=== PATIENT | female | born 1955 | race Caucasian/White ===

== ENCOUNTER → 2020-08-12 12:45 | Outpatient (BNVA) | payer OTHER, SELFPAY | PROVIDERS: PCP Internal Medicine; Visit Provider Internal Medicine Cardiovascular Disease | DX: I44.7 Left bundle-branch block, unspecified (principal); I10 Essential (primary) hypertension | CPT/HCPCS: 93005 ==

== ENCOUNTER → 2021-08-18 08:41 | Outpatient (BNVA) | payer OTHER, SELFPAY | PROVIDERS: PCP Internal Medicine; Referring Provider Internal Medicine; Visit Provider Internal Medicine Cardiovascular Disease | DX: I44.7 Left bundle-branch block, unspecified (principal); I10 Essential (primary) hypertension | CPT/HCPCS: 93005 ==

== ENCOUNTER → 2021-11-06 07:22 | Outpatient (REF) | payer OTHER, SELFPAY ==
--- NOTE | 2021-11-06 07:25 | CA_ITS ---
Transthoracic Echocardiogram Patient (Last, First, Middle): Gretta Toledo, Gender: Female Date of : 1955 Age: 66 Procedure Date: 11/06/2021 Procedure Type: Transthoracic Echocardiogram Location: OP Height: 167.64 cm Weight: 107.5 kg BSA: 2.15 m2 Heart Rate: 77 bpm BP: 120 / 70 mmHg Body Technician/Painter: SB Referring MD: Lamont Sandy MD Symptoms: I44.7 - Left bundle-branch block, unspecified Study Quality: Fair/BSA/Contrast ECG Rhythm: Sinus Conclusions: - Normal left ventricular size and systolic function. There is moderately increased left ventricular wall thickness. The visually estimated ejection fraction is between 65-70%. - Diastolic function is indeterminate on the basis of available data. - Normal right ventricular cavity size and systolic function. - There is mild dilatation of the ascending aorta measuring 3.20 cm. Findings Procedure Information Contrast agent, definity, is being given per protocol without apparent complications. Left Ventricle Normal left ventricular size and systolic function. There is moderately increased left ventricular wall thickness. The visually estimated ejection fraction is between 65-70%. There is no evidence of regional wall motion abnormalities. There is paradoxical septal motion consistent with a left bundle branch block. Diastolic function is indeterminate on the basis of available data. Right Ventricle Normal right ventricular cavity size and systolic function. Atria The left atrium is normal in size. Aortic Valve Normal aortic valve structure and function. There is mild calcification of the aortic valve. There is no aortic valve stenosis. There is no aortic valve regurgitation. Tricuspid Valve Normal tricuspid valve structure and function. There is trace tricuspid valve regurgitation. Tricuspid regurgitation envelope is inadequate for calculation of right ventricular systolic pressure. Normal right atrial pressure. Great Vessels There is mild dilatation of the ascending aorta measuring 3.20 cm. The visualized portions of the pulmonary artery and branches are normal. Venous The inferior vena cava is normal in size and collapses greater than 50% with inspiration. Pericardium/Pleural There is no evidence of pericardial effusion. Prior Study Comparison No prior study available for comparison. Measurements 2D Linear Measurements IVSd: 1.21 0.6-0.9/0.6-1.0 cm LVIDd: 4.36 3.9-5.3/4.2-5.9 cm LVIDd Index: 2.03 2.4-3.2/2.2-3.1 cm/m2 LVIDs: 2.64 2.0-3.6 cm LVPWd: 1.11 0.7-1.1 cm LA Diam: 4.10 2.7-3.8/3.0-4.0 cm LAIDs Index: 1.91 1.5-2.3 cm/m2 LV Mass: 223.80 67-162/88-224 g LV Mass Index: 104.09 43-95/49-115 g/m2 LVOT Diam: 2.10 3.0+(-)1.3 cm 2D Systolic Function EF 4C: 67.10 >55% EF 2C: 75.90 >55% EF BiP: 71.60 >55% Mitral Valve MV Pk E: 1.06 MV PK A: 1.08 MV Decel Time: 163.00 E/A: 1.00 E'Lateral: 7.07 E'Medial: 4.79 E/E' Med: 22.10 E/E' Lat: 15.00 PHT: 48.00 MVA PHT: 4.58 Decel Bradley: 6.53 Aortic Valve AoV Pk Charly: 1.58 AoV Mn Charly: 1.10 AoV VTI: 0.31 AoV Pk Grad: 10.00 Aov Mn Grad: 6.00 MAYA Cont.VTI: 3.47 LVOT LVOT Pk Charly: 1.51 LVOT Mn Charly: 1.10 LVOT VTI: 0.31 LVOT Pk Grad: 9.00 LVOT Mn Grad: 5.00 LVOT Diam: 2.10 LVOT Area: 3.46 Diastolic Function MV Pk E: 1.06 MV Pk A: 1.08 E/A: 1.00 E'Medial: 4.79 E/E' Med: 22.10 E' Laterial: 7.07 E/E' Lat: 15.00 Right Ventricle TAPSE (mm): 19.40 TVS' Charly: 13.20 Tricuspid Valve RA Press: 3.00 Great Vessels Aorta Sinus of Valsalva: 2.70 2.0-3.[address] [place]: 2.35 1.7-3.4 cm Ao Asc: 3.20 2.1-3.4 cm Pulmonary Veins Pulm Vein S/D 1.40 Pulmonary Valve PV Pk Charly: 1.16 Peak PV Grad: 5.00 Updated in Other Vendor System with Status of Final Lamont Sandy MD electronically signed on 11/08/2021 7:13:13 PM with status of Final
== END ==
LOC: HO.CARD 07:22
PROVIDERS: Visit Provider Internal Medicine Cardiovascular Disease
DX: I44.7 Left bundle-branch block, unspecified (principal)
CPT/HCPCS: 93306; Q9957

== ENCOUNTER → 2022-08-20 13:27 | Outpatient (BNVA) | payer OTHER, SELFPAY | PROVIDERS: PCP Family Medicine; Referring Provider Internal Medicine; Visit Provider Internal Medicine Cardiovascular Disease | DX: I10 Essential (primary) hypertension (principal) | CPT/HCPCS: 93005 ==

== ENCOUNTER 2023-10-27 09:06 | Outpatient (AMB) | payer OTHER, SELFPAY ==
--- NOTE | 2023-10-27 09:12 | A.OFFVIS_ITS ---
Vital Signs 10/27/23 09:13 Height 5 ft 6 in Weight 235 lb 7.259 oz BMI 38.0 BP 126/60 Blood Pressure Location Lt brachial Position Sitting Pulse 90 Intake Visit Reasons: 1 yr f/up Intake Note: pt states that she is doing fine. Repeat Photocomposing Machine Operator Required: No Accompanied by: Self / Same As Patient Allergies No Known Allergies [No Known Allergies*] Allergy (Verified 08/20/22 13:40) Medication List - Last Reconciled 10/27/23 by Lamont Sandy MD atorvastatin 40 mg PO BEDTIME cholecalciferol (vitamin D3) 25 mcg PO DAILY glimepiride 6 mg PO DAILY insulin glargine (Lantus Solostar U-100 Insulin) 53 units subcut QAM losartan-hydrochlorothiazide 100-12.5 mg 1 tab PO DAILY metformin 1,000 mg PO BID vitamin B complex (B Complex-Vitamin B12 tablet) 1 tab PO DAILY HPI Comments Details: 68-year-old female here for follow-up. She was seen when she presented with burning chest discomfort and was ruled out inside the hospital. She subsequently underwent Lexiscan which was normal. She was started on omeprazole with improvement in her burning chest discomfort. She has left bundle-branch block. Echocardiography has shown normal biventricular function. She has no symptoms/signs of heart failure. No chest discomfort or progressive shortness of breath. Physically she is not very active but during wintertime she is quite sedentary and is saying that as the weather is changing she will start walking more. Blood pressure control is currently reasonable. 10/27/23: She is here for follow-up. EKGs showing left bundle-branch block with QRS duration of 142 milliseconds. She has no symptoms. No CP, SOB/CHF symptoms in particular. [facility] Surgical History History of 2 sections Family History Father Diabetes Mother S/P ablation of atrial fibrillation HTN (hypertension) Arthritis Social History Alcohol intake: current Alcohol intake frequency: a few times a week Alcohol type: wine Patient Tobacco Use Status: Never used Tobacco Review of Systems Const Denies chills, Denies fatigue, Denies fever(s), Denies frequent falls, Denies weakness, Denies weight gain and Denies weight loss ENT Denies dizziness Card Denies chest pain, Denies leg edema, Denies lightheadedness, Denies palpitations, Denies dyspnea and Denies dyspnea on exertion Resp Denies cough, Denies dyspnea and Denies dyspnea on exertion GI Denies hematochezia Musc Denies abnormal gait, Denies muscle weakness, Denies numbness, Denies radiating pain into limb and Denies tingling Neuro Denies abnormal gait, Denies dizziness, Denies frequent falls, Denies numbness, Denies tingling and Denies weakness Endo Denies fatigue and Denies palpitations Physical Exam Vital Signs: Last Vital Signs Pulse 90 10/27/23 09:13 BP 126/60 10/27/23 09:13 BMI result Body Mass Index 38.0 GENERAL APPEARANCE: in no acute distress, pleasant. NECK: no carotid bruit, no jugular venous distention. SKIN: no suspicious lesions, warm and dry. HEART: no murmurs, regular rate and rhythm. Tachycardic. LUNGS: clear to auscultation bilaterally. ABDOMEN: soft, nontender. EXTREMITIES: no edema. PERIPHERAL PULSES: equal. NEUROLOGIC: No gross deficits, AAO X 3 Office Procedures EKG Details: NSR 90/min, normal axis, LBBB, QRS 142 msec, QTc 477 msec. [id number], Complete Assessment & Plan Assessment & Plan (1) Essential hypertension: Comment: Good control. Code(s): I10 - Essential (primary) hypertension Category: Medical (2) LBBB (left bundle branch block): Comment: Stable. She had normal stress testing in the past. No new symptoms. Code(s): I44.7 - Left bundle-branch block, unspecified Category: Medical Plan 68-year-old female with HTN and LBBB. She had echo in 2022 which showed normal LVEF. Cinically stable. Discussed with her about symptoms of CHF and to call us if she develops any symptoms. F/u in 1 year. Would repeat echo before next visit in 1 year. Orders: Orders CA echo transthoracic complete 1 Year I44.7 - Left bundle-branch block, unspecified Coding Level of Care Code Est Pt Level 4 (41800) Diagnoses Essential hypertension I10 LBBB (left bundle branch block) I44.7 CPT Codes EKG - CPT: 00056-[id number], Complete ([id number])
[2023-10-27 09:13] VITALS: BP 126/60; PULSE 90; BMI 38.0
== END 2023-10-27 09:35 | disposition home or self-care (01) ==
PROVIDERS: PCP Family Medicine; Visit Provider Internal Medicine Cardiovascular Disease
DX: I10 Essential (primary) hypertension (principal); I44.7 Left bundle-branch block, unspecified
CPT/HCPCS: 93010; 99214

== ENCOUNTER → 2023-10-27 09:06 | Outpatient (BNVA) | payer OTHER, SELFPAY | PROVIDERS: PCP Family Medicine; Visit Provider Internal Medicine Cardiovascular Disease | DX: I44.7 Left bundle-branch block, unspecified (principal); I10 Essential (primary) hypertension | CPT/HCPCS: 93005 ==

== ENCOUNTER 2023-12-15 15:38 | Outpatient (AMB) | payer OTHER, SELFPAY ==
[2023-12-15 15:42] VITALS: BP 130/60; PULSE 91; BMI 37.8
--- NOTE | 2023-12-15 15:42 | A.OFFVIS_ITS ---
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 She was seen when she presented with burning chest discomfort and was ruled out inside the hospital. She subsequently underwent Lexiscan which was normal. She was started on omeprazole with improvement in her burning chest discomfort. She has left bundle-branch block. Echocardiography has shown normal biventricular function. She has no symptoms/signs of heart failure. No chest discomfort or progressive shortness of breath. Physically she is not very active but during wintertime she is quite sedentary and is saying that as the weather is changing she will start walking more. Blood pressure control is currently reasonable. 10/27/23: She is here for follow-up. EKGs showing left bundle-branch block with QRS duration of 142 milliseconds. She has no symptoms. No CP, SOB/CHF symptoms in particular. 12/15/23: She is here for f/u. She had presyncope x 2 and went to [facility]. She had bradycardia based on her apple watch at time. She was out in the sun in her pool both times and felt dizzy and lightheaded when she went inside the house. Her work up at [facility] was normal. She has chronic LBBB. [facility] Surgical History History of 2 sections Family History Father Diabetes Mother S/P ablation of atrial fibrillation HTN (hypertension) Arthritis Social History Alcohol intake: current Alcohol intake frequency: a few times a week Alcohol type: wine Patient Tobacco Use Status: Never used Tobacco Review of Systems Const Denies chills, Denies fatigue, Denies fever(s), Denies frequent falls, Denies weakness, Denies weight gain and Denies weight loss ENT Denies dizziness Card Denies chest pain, Denies leg edema, Denies lightheadedness, Denies palpitations, Denies dyspnea and Denies dyspnea on exertion Resp Denies cough, Denies dyspnea and Denies dyspnea on exertion GI Denies hematochezia Musc Denies abnormal gait, Denies muscle weakness, Denies numbness, Denies radiating pain into limb and Denies tingling Neuro Denies abnormal gait, Denies dizziness, Denies frequent falls, Denies numbness, Denies tingling and Denies weakness Endo Denies fatigue and Denies palpitations Physical Exam Vital Signs: Last Vital Signs Pulse 91 12/15/23 15:42 BP 130/60 12/15/23 15:42 BMI result Body Mass Index 37.8 GENERAL APPEARANCE: in no acute distress, pleasant. NECK: no carotid bruit, no jugular venous distention. SKIN: no suspicious lesions, warm and dry. HEART: no murmurs, regular rate and rhythm. Tachycardic. LUNGS: clear to auscultation bilaterally. ABDOMEN: soft, nontender. EXTREMITIES: no edema. PERIPHERAL PULSES: equal. NEUROLOGIC: No gross deficits, AAO X 3 Office Procedures EKG Details: Sinus rhythm 95 beats per minute, left axis deviation, left bundle-branch block, QTC 495 milliseconds. [id number], Complete Assessment & Plan Assessment & Plan (1) Essential hypertension: Comment: Good control. Code(s): I10 - Essential (primary) hypertension Category: Medical (2) Bradycardia: Code(s): R00.1 - Bradycardia, unspecified Category: Medical (3) LBBB (left bundle branch block): Comment: Stable. She had normal stress testing in the past. No new symptoms. Code(s): I44.7 - Left bundle-branch block, unspecified Category: Medical (4) Pre-syncope: Code(s): R55 - Syncope and collapse Category: Medical Plan Pleasant 68-year-old female with chronic LBBB, HTN and presyncope. She noted her HR to be low in 40s by Apple watch but clinical story is more suggestive of vasovagal event. Advised her to avoid heat and keep herself well hydrated. We will arrange ROCAEL and repeat echo. f/u in few months. Thank you for allowing me to participate in the care of your patient. Please feel free to contact me if you have any questions. Coding Level of Care Code Est Pt Level 4 (68208) Diagnoses Essential hypertension I10 Bradycardia R00.1 LBBB (left bundle branch block) I44.7 Pre-syncope R55 CPT Codes EKG - CPT: 65788-[id number], Complete ([id number])
== END 2023-12-15 16:15 | disposition home or self-care (01) ==
PROVIDERS: PCP Family Medicine; Visit Provider Internal Medicine Cardiovascular Disease
DX: I10 Essential (primary) hypertension (principal); R00.1 Bradycardia, unspecified; I44.7 Left bundle-branch block, unspecified; R55 Syncope and collapse
CPT/HCPCS: 93010; 99214

== ENCOUNTER → 2023-12-15 15:38 | Outpatient (BNVA) | payer OTHER, SELFPAY | PROVIDERS: PCP Family Medicine; Visit Provider Internal Medicine Cardiovascular Disease | DX: I10 Essential (primary) hypertension (principal); R00.1 Bradycardia, unspecified; I44.7 Left bundle-branch block, unspecified; R55 Syncope and collapse | CPT/HCPCS: 93005 ==

== ENCOUNTER → 2023-12-20 13:45 | Outpatient (REF) | payer OTHER, SELFPAY ==
--- NOTE | 2023-12-20 13:48 | HM_ITS ---
* Total procedure length 30 days. Wear time 24 days. * Underlying rhythm is sinus with intraventricular conduction defect. Average ventricular rate 78/Min. * Rare supraventricular ectopy with burden < 1%. Brief runs noted. * Rare ventricular ectopy with burden < 1%. Suspected wide complex run at 00:32, 11 beats, 111/Min, monomorphic appearing. Difficult to assess due to very low voltage. * No symptoms mentioned. MTDD
== END ==
LOC: HO.CARD 13:45
PROVIDERS: Visit Provider Internal Medicine Cardiovascular Disease
DX: R00.1 Bradycardia, unspecified (principal)
CPT/HCPCS: 93270

== ENCOUNTER → 2023-12-20 13:48 | Outpatient (BNV) | payer OTHER, SELFPAY | PROVIDERS: Visit Provider Internal Medicine | DX: I45.9 Conduction disorder, unspecified (principal) | CPT/HCPCS: 93272 ==

== ENCOUNTER → 2023-12-30 12:45 | Outpatient (REF) | payer OTHER, SELFPAY ==
--- NOTE | 2023-12-30 12:48 | CA_ITS ---
Transthoracic Echocardiogram Patient (Last, First, Middle): Gretta Toledo, Gender: Female Date of : 1955 Age: 68 Procedure Date: 12/30/2023 Procedure Type: Transthoracic Echocardiogram Location: OP Height: 167.64 cm Weight: 106.14 kg BSA: 2.14 m2 Heart Rate: 74 bpm BP: 128 / 60 mmHg Sharepoint Application Architect: SB Referring MD: Lamont Sandy MD Shipfitter Helper: Patrick Alfred MD Symptoms: I44.7 - Left bundle-branch block, unspecified Study Quality: Adequate w contrast ECG Rhythm: Sinus Conclusions: - 1. Normal LV ejection fraction at 65-70% with impaired relaxation filling pattern with mild obstructive physiology 2. Normal cardiac valvular Doppler with mild mitral calcification 3. Normal RV systolic pressure 4. No pericardial effusion Findings Procedure Information Contrast agent, definity, is being given per protocol without apparent complications. Left Ventricle Normal left ventricular size, thickness, and systolic function. The visually estimated ejection fraction is between 65-70%. There is paradoxical septal motion consistent with a left bundle branch block. Spectral Doppler is indicative of an impaired relaxation filling pattern. E/E prime ratio is between 8 and 15 consistent with indeterminate filling pressures. there is mildly increased gradient across the LVOT at rest at 7 mm Hg which increases to 14 mm Hg with Valsalva suggestive of maybe mild obstructive physiology which is dynamic Right Ventricle Normal right ventricular cavity size and systolic function. Atria The left atrium is likely dilated. Interatrial shunt cannot be excluded. The right atrium is normal in size. Aortic Valve Normal aortic valve structure and function. There is no aortic valve stenosis. There is no aortic valve regurgitation. Mitral Valve Likely normal mitral valve structure and function. There is mild mitral annular calcification. There is trace mitral valve regurgitation. There is no mitral valve stenosis. Pulmonic Valve The pulmonic valve was not well visualized. Tricuspid Valve Likely normal tricuspid valve structure and function. There is trace tricuspid valve regurgitation. The right ventricular systolic pressure is normal. The right ventricular systolic pressure is 27 mmHg. Normal right atrial pressure. There is no evidence of pulmonary hypertension. Great Vessels All visible segments of the aorta are normal in size. The pulmonary artery was not well visualized. There is no dilatation of the ascending aorta measuring 3.10 cm. Venous The inferior vena cava is normal in size and collapses greater than 50% with inspiration. Pericardium/Pleural There is no evidence of pericardial effusion. Measurements 2D Linear Measurements IVSd: 1.15 0.6-0.9/0.6-1.0 cm LVIDd: 4.15 3.9-5.3/4.2-5.9 cm LVIDd Index: 1.94 2.4-3.2/2.2-3.1 cm/m2 LVIDs: 2.95 2.0-3.6 cm LVPWd: 1.10 0.7-1.1 cm LA Diam: 4.00 2.7-3.8/3.0-4.0 cm LAIDs Index: 1.87 1.5-2.3 cm/m2 LV Mass: 197.15 67-162/88-224 g LV Mass Index: 92.13 43-95/49-115 g/m2 LVOT Diam: 2.10 3.0+(-)1.3 cm 2D Systolic Function EF 4C: 78.70 >55% EF 2C: 67.50 >55% EF BiP: 74.20 >55% Mitral Valve MV Pk E: 0.85 MV PK A: 1.14 MV Decel Time: 184.00 E/A: 0.70 E'Lateral: 6.31 E'Medial: 4.79 E/E' Med: 17.70 E/E' Lat: 13.40 PHT: 54.00 MVA PHT: 4.07 Decel [place]: 4.60 Aortic Valve AoV Pk Charly: 1.86 AoV Mn Charly: 1.36 AoV VTI: 0.37 AoV Pk Grad: 14.00 Aov Mn Grad: 9.00 MAYA Cont.VTI: 3.23 LVOT LVOT Pk Charly: 1.76 LVOT Mn Charly: 1.23 LVOT VTI: 0.34 LVOT Pk Grad: 12.00 LVOT Mn Grad: 7.00 LVOT Diam: 2.10 LVOT Area: 3.46 Diastolic Function MV Pk E: 0.85 MV Pk A: 1.14 E/A: 0.70 E'Medial: 4.79 E/E' Med: 17.70 E' Laterial: 6.31 E/E' Lat: 13.40 Right Ventricle TAPSE (mm): 21.90 TVS' Charly: 15.10 Tricuspid Valve TR Pk Charly: 2.46 TR Pk Grad: 24.00 RA Press: 3.00 RVSP: 27.00 Great Vessels Aorta Sinus of Valsalva: 2.90 2.0-3.5 cm Ao Asc: 3.10 2.1-3.4 cm Pulmonary Veins Pulm Vein S/D 2.10 Pulmonary Valve PV Pk Charly: 1.28 Peak PV Grad: 7.00 Updated in Other Vendor System with Status of Final Patrick Alfred MD electronically signed on 12/31/2023 12:00:17 PM with status of Final
== END ==
LOC: HO.CARD 12:45
PROVIDERS: PCP Family Medicine; Visit Provider Internal Medicine Cardiovascular Disease
DX: I44.7 Left bundle-branch block, unspecified (principal)
CPT/HCPCS: 93306; Q9957

== ENCOUNTER → 2023-12-30 12:48 | Outpatient (BNV) | payer OTHER, SELFPAY | PROVIDERS: PCP Family Medicine; Visit Provider Internal Medicine Cardiovascular Disease | DX: I44.7 Left bundle-branch block, unspecified (principal); I42.1 Obstructive hypertrophic cardiomyopathy; I34.81 Nonrheumatic mitral (valve) annulus calcification | CPT/HCPCS: 93306 ==

== ENCOUNTER 2024-02-07 13:15 | Outpatient (AMB) | payer OTHER, SELFPAY ==
[2024-02-07 13:23] VITALS: BP 140/72; PULSE 91; BMI 37.9
--- NOTE | 2024-02-07 13:23 | MHC.OFFVIS ---
Vital Signs 02/07/24 13:23 Height 5 ft 6 in Weight 234 lb 9.149 oz BMI 37.9 BP 140/72 H Blood Pressure Location Rt brachial Position Sitting Pulse 91 Pulse Source Pulse Oximeter Intake Visit Reasons: f/up Manager Infusion Required: No Accompanied by: Self / Same As Patient Allergies No Known Allergies [No Known Allergies*] Allergy (Verified 08/20/22 13:40) Medication List - Last Reconciled 02/07/24 by Lamont Sandy MD atorvastatin 40 mg PO BEDTIME cholecalciferol (vitamin D3) 25 mcg PO DAILY cholecalciferol (vitamin D3) 50 mcg PO DAILY glimepiride 6 mg PO DAILY insulin glargine (Lantus Solostar U-100 Insulin) 53 units subcut QAM losartan 100 mg PO DAILY metformin 1,000 mg PO BID HPI Comments Details: 69-year-old female here for follow-up. She was seen when she presented with burning chest discomfort and was ruled out inside the hospital. She subsequently underwent Lexiscan which was normal. She was started on omeprazole with improvement in her burning chest discomfort. She has left bundle-branch block. Echocardiography has shown normal biventricular function. She has no symptoms/signs of heart failure. No chest discomfort or progressive shortness of breath. Physically she is not very active but during wintertime she is quite sedentary and is saying that as the weather is changing she will start walking more. Blood pressure control is currently reasonable. 10/27/23: She is here for follow-up. EKGs showing left bundle-branch block with QRS duration of 142 milliseconds. She has no symptoms. No CP, SOB/CHF symptoms in particular. 12/15/23: She is here for f/u. She had presyncope x 2 and went to [facility]. She had bradycardia based on her apple watch at time. She was out in the sun in her pool both times and felt dizzy and lightheaded when she went inside the house. Her work up at [facility] was normal. She has chronic LBBB. 02/07/2024: She is here for follow-up. No further episodes of syncope. She had cardiac event monitor which did not show any significant arrhythmia. She had short runs of wide complex rhythm which I think is supraventricular rhythm with aberrancy. She has known left bundle-branch block at baseline. No chest discomfort. Blood pressure is elevated. PFSH Surgical History History of 2 sections Family History Father Diabetes Mother S/P ablation of atrial fibrillation HTN (hypertension) Arthritis Social History Alcohol intake: current Alcohol intake frequency: a few times a week Alcohol type: wine Patient Tobacco Use Status: Never used Tobacco Review of Systems Const Denies chills, Denies fatigue, Denies fever(s), Denies frequent falls, Denies weakness, Denies weight gain and Denies weight loss ENT Denies dizziness Card Denies chest pain, Denies leg edema, Denies lightheadedness, Denies palpitations, Denies dyspnea and Denies dyspnea on exertion Resp Denies cough, Denies dyspnea and Denies dyspnea on exertion GI Denies hematochezia Musc Denies abnormal gait, Denies muscle weakness, Denies numbness, Denies radiating pain into limb and Denies tingling Neuro Denies abnormal gait, Denies dizziness, Denies frequent falls, Denies numbness, Denies tingling and Denies weakness Endo Denies fatigue and Denies palpitations Physical Exam Vital Signs: Last Vital Signs Pulse 91 02/07/24 13:23 BP 140/72 H 02/07/24 13:23 BMI result Body Mass Index 37.9 GENERAL APPEARANCE: in no acute distress, pleasant. NECK: no carotid bruit, no jugular venous distention. SKIN: no suspicious lesions, warm and dry. HEART: no murmurs, regular rate and rhythm. Tachycardic. LUNGS: clear to auscultation bilaterally. ABDOMEN: soft, nontender. EXTREMITIES: no edema. PERIPHERAL PULSES: equal. NEUROLOGIC: No gross deficits, AAO X 3 Assessment & Plan Assessment & Plan (1) Pre-syncope: Code(s): R55 - Syncope and collapse Category: Medical (2) Essential hypertension: Comment: Good control. Code(s): I10 - Essential (primary) hypertension Category: Medical (3) LBBB (left bundle branch block): Comment: Stable. She had normal stress testing in the past. No new symptoms. Code(s): I44.7 - Left bundle-branch block, unspecified Category: Medical Plan Pleasant 69 year female who is here for follow-up. She has known history of hypertension, left bundle-branch block and previous presyncope. Presyncopal episodes were due to vasovagal syncope. She has been hydrating herself and doing well. I have advised her to avoid heat as much as possible. Blood pressure is mildly elevated. No Jignesh arrhythmia noticed on her cardiac event monitor. She did have what appears like supraventricular arrhythmia with aberrancy. I am starting her on low-dose carvedilol which will help her with blood pressure and potentially with arrhythmia. Clinically stable. She will see us back in few months. Thank you for allowing me to participate in the care of your patient. Please feel free to contact me if you have any questions. Medications: New carvedilol must administer with a meal/food 3.125 mg PO BID 100 tabs 3RF I10 - Essential (primary) hypertension Coding Level of Care Code Est Pt Level 4 (49491) Diagnoses Pre-syncope R55 Essential hypertension I10 LBBB (left bundle branch block) I44.7
== END 2024-02-07 14:04 | disposition home or self-care (01) ==
PROVIDERS: PCP Family Medicine; Visit Provider Internal Medicine Cardiovascular Disease
DX: R55 Syncope and collapse (principal); I10 Essential (primary) hypertension; I44.7 Left bundle-branch block, unspecified
CPT/HCPCS: 99214

== ENCOUNTER → 2024-02-07 13:15 | Outpatient (BNVA) | payer OTHER, SELFPAY | PROVIDERS: PCP Family Medicine; Visit Provider Internal Medicine Cardiovascular Disease ==

== ENCOUNTER 2024-08-03 08:30 | Outpatient (AMB) | payer OTHER, SELFPAY ==
[2024-08-03 08:45] VITALS: BP 140/62; PULSE 75; BMI 38.3
--- NOTE | 2024-08-03 08:45 | A.OFFVIS_ITS ---
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: No Allergies No Known Allergies [No Known Allergies*] Allergy (Verified 08/03/24 08:49) Medication List - Last Reconciled 08/03/24 by Oralia Barron NP-C atorvastatin 40 mg PO BEDTIME carvedilol 3.125 mg PO BID cholecalciferol (vitamin D3) 25 mcg PO DAILY cholecalciferol (vitamin D3) 50 mcg PO DAILY glimepiride 6 mg PO DAILY insulin glargine (Lantus Solostar U-100 Insulin) 53 units subcut QAM losartan 100 mg PO DAILY metformin 1,000 mg PO BID HPI HPI 6m/up- KM pt: Details: Gretta is a 69-year-old female with past medical history of obesity, hypertension, left bundle branch block, prior reports of chest discomfort with normal nuclear stress test, presyncope which was thought to be vasovagal who presents for follow-up. Today she reports she has been doing well since her last visit in January. She has no chest discomfort at rest or with activity. No concerning shortness of breath, no PND, orthopnea or edema. No lightheadedness, presyncope, syncope. She is going on a cruise in a few weeks. 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 No routine exercise. Compliant with meds. She is going to be starting on weight loss injections. [facility] Medical History (Updated 08/03/24 @ 11:43 by Oralia Barron, LAURA-C) LBBB (left bundle branch block) Surgical History History of 2 sections Family History Father Diabetes Mother S/P ablation of atrial fibrillation HTN (hypertension) Arthritis Social History Alcohol intake: current Alcohol intake frequency: a few times a week Alcohol type: wine Patient Tobacco Use Status: Never used Tobacco Review of Systems Const All systems reviewed & are unremarkable except as noted in HPI and below ENT Denies dizziness Card Denies chest pain, Denies chest pain at rest, Denies chest pain with activity, Denies rapid heart rate, Denies pedal edema, Denies edema, Denies leg edema, Denies lightheadedness, Denies palpitations, Denies dyspnea, Denies dyspnea on exertion and Denies orthopnea Resp Denies cough, Denies dyspnea and Denies dyspnea on exertion GI Denies hematochezia and Denies change in stool character Musc Denies abnormal gait, Denies limited range of motion, Denies muscle cramps, Denies muscle weakness, Denies numbness, Denies radiating pain into limb, Denies stiffness and Denies tingling Neuro Denies abnormal gait, Denies dizziness, Denies numbness and Denies tingling Endo Denies palpitations Physical Exam Vital Signs: Last Vital Signs Pulse 75 08/03/24 08:45 BP 140/62 H 08/03/24 08:45 BMI result Body Mass Index 38.3 Const General: cooperative, healthy appearing, comfortable and no acute distress Orientation/consciousness: patient oriented x3 Neck Neck: Yes normal visual inspection and Yes no JVD Resp Effort & Inspection: normal respiratory effort Auscultation: clear to auscultation bilaterally, no rales, no rhonchi and no wheezes Cardio Rate: regular rate Rhythm: regular rhythm Heart sounds: S1 normal heart sound present, S2 normal heart sound present, no murmurs and no rubs Neuro General: patient oriented x3 Extrem General: Yes normal to inspection and No no pedal edema Psych Appearance: grossly normal Mental Status: mental status grossly normal Speech and movement: Normal speech and movement present Office Procedures EKG Details: Today, read by me, SR with LBBB, rate 75, Qtc 471ms [id number], Complete Assessment & Plan Assessment & Plan (1) LBBB (left bundle branch block): Comment: Stable. She had normal stress testing in the past. No new symptoms. Code(s): I44.7 - Left bundle-branch block, unspecified Category: Medical Plan: Chronic left bundle branch block noted on EKGs. Nuclear stress test from 07/11/2019 was normal. No anginal or heart failure symptoms. last echo done 12/30/2023 shows normal EF. EKG today showing normal sinus rhythm with left bundle branch block, unchanged from prior, rate 75. (2) Essential hypertension: Comment: Good control. Code(s): I10 - Essential (primary) hypertension Category: Medical Plan: History of hypertension. Blood pressure mildly elevated today at 140/62, recheck done by me 140/60. will have her continue on carvedilol and losartan. Discuss benefits of low-salt diet, weight loss and increasing physical activity. Cardiology follow-up 6 months, sooner if needed. (3) Pre-syncope: Code(s): R55 - Syncope and collapse Category: Medical Plan: Two episodes of presyncope in the past. Thought to be vasovagal in nature. No recurrent events since last visit in January. Reviewed good hydration, recognition of symptoms and to sit/lay down if she becomes symptomatic. Emergency care if ever needed. Plan Time spent on chart review, documentation, interview assessment Coding Level of Care Code Est Pt Level 4 (48290) Complex EM visit Add On G2211 Diagnoses LBBB (left bundle branch block) I44.7 Essential hypertension I10 Pre-syncope R55 CPT Codes EKG - CPT: [id number], Complete ([id number]) Time Spent (min) 28
--- OUTSIDE RECORDS SUMMARY | 2024-08-03 09:05 | XMS_ITS ---
Author Organization [facility] Address [address] [place] [address] Care Team Providers Care Security Compliance Specialist Name Role Phone Lakisha Palmer Primary Care Provider Connie Perry Unavailable [phone] Allergies No Known Allergies REASON FOR VISIT At Risk Footcare, Painful Nail(s) aggravated by shoes and causing difficulty standing/walking., Foot pain, Toe Irritation Medications Medication SIG (Take, Route, Frequency, Duration) Notes Start Date End Date Status Extra Depth Orthopedic Shoes (1 Pair) with Customized Heat Molded Multidensity Innersoles (3 Pair) as directed Dx: NIDDM (E11.9), Hammertoe Foot Deformity (M20.41,M20.42), Preulcerative Skin Lesion(s) (L85.1) Active metFORMIN HCl 1000 MG 1 tablet with a me al Orally Once a day Active Lovastatin 40 MG 1 tablet with the evening meal Orally Once a day Active Atorvastatin Calcium 40 MG 1 tablet Orally Once a day Not-Taking Carvedilol 3.125 MG 1 tablet with food Orally Twice a day Active Lantus 100 UNIT/ML as directed Subcutaneous Active Glimepiride 4 MG 1 tablet with breakf ast or the first main meal of the day Orally Once a day Active Losartan Potassium 100 MG 1 tablet Orally Once a day Active Social History Tobacco Use: Social History Observation Description Date Details (start date - stop date) Never Smoker NA - NA Tobacco Use/Smoking Question Answer Notes Are you a: nonsmoker Additional Findings: Tobacco Non-User Current no n-smoker Tobacco use other than smoking: Question Answer Notes Are you an other tobacco user? No Vital Signs Height 5ft6in in 06/30/2024 Weight 234 lbs 06/30/2024 BMI 37.76 kg/m2 06/30/2024 Blood pressure systolic 136 mm Hg 06/30/19 25 Blood pressure diastolic 76 mm Hg 025 Encounters Encounter Location Date Provider Diagnosis [facility] [address] [place] [address] 06/30/2024 Connie Martinse Osteoarthritis of midtarsal joint of left foot M19.072 ; Other hammer toe(s) (acquired), right foot M20.41 ; Tinea unguium B35.1 ; Type 2 diabetes mellitus without complication E11.9 ; Pain in left ankle and joints of left foot M25.572 ; Bursitis of left foot M77.52 ; Other hammer toe(s) (acquired), left foot M20.42 ; Pain in right toe(s) M79.674 and Pain in left toe(s) M79.675 Assessments Encounter Date Diagnosis (ICD Code) Assessment Notes Treatment Notes Treatment Clinical Notes Section Notes 06/30/2024 Osteoarthritis of midtarsal joint of left foot (ICD-10 - M19.072) 06/30/2024 Other hammer toe(s) (acquired), right foot (ICD-10 - M20.41) Patient Educated with: DIABETIC FOOT CARE INSTRUCTIONS. pdf (DIABETIC FOOT CARE INSTRUCTIONS. pdf) 06/30/2024 Tinea unguium (ICD-10 - B35.1) 06/30/2024 Type 2 diabetes mellitus without complication (ICD-10 - E11.9) 06/30/2024 Pain in left ankle and joints of left foot (ICD-10 - M25.572) 06/30/2024 Bursitis of left foot (ICD-10 - M77.52) 06/30/2024 Other hammer toe(s) (acquired), left foot (ICD-10 - M20.42) 06/30/2024 Pain in right toe(s) (ICD-10 - M79.674) 06/30/2024 Pain in left toe(s) (ICD-10 - M79.675) Plan Of Treatment Medication Medication Name Sig Start Date Stop Date Notes Extra Depth Orthopedic Shoes (1 Pair) with Customized Heat Molded Multidensity Innersoles (3 Pair) as directed Dx: NIDDM (E11.9), Hammertoe Foot Deformity (M20.41,M20.42), Preulcerative Skin Lesion(s) (L85.1) Treatment Notes Assessment Notes Other hammer toe(s) (acquired), right fo ot Patient Educated with: DIABETIC FOOT CARE INSTRUCTIONS.pdf (DIABETIC FOOT CARE INSTRUCTIONS.pdf) Next Appt Details Follow Up: 3 Months, Reason: Provider Name:Connie tate, 09/26/2024 09:15:00 AM, [address] [place] [address], [phone], Procedure Notes * Category Sub-Category Detail Notes Debride Nail 6-10 Nail debridement Due to the cl inical pathology outlined in the exam findings, performance of this nail treatment is medically necessary as its management by an unskilled/untrained nonprofessional would put this patients foot and overall health at risk. Therefore, debridement to affected nail(s), as described in exam ( TA, T1, T2, T3, T4, T5, T6, T7, T8, T9, ), was performed exclusively by the physician of record to reduce/remove overall nail length, girth, thickness, subungual debris, and necrotic tissue, by manual and/or electrical means through the use of a nail nipper and/or dremel-type card grinder helper, to a more viable healthy nail plate or bed tissue 6-10 nails in total. Silver nitrate was used for any petechial bleeding as necessary. Definitive antifungal treatment options, both pharmaceutical and surgical, have been reviewed and discussed with the patient. The patient solely prefers the use of intermittent/as needed professional debridement services for their nail condition and understands the need for additional periodic treatments to maintain effectiveness in symptomatic relief - 79334 Keratoma Treatment Parring or Cutting o f Benign Hyperkeratotic Lesion(s) (-57) More than 4 Lesions - Due to the at risk nature of the patients medical condition as documented in the exam findings, performance of this keratoderma treatment is medically necessary as its management by an unskilled/untrained nonprofessional would put this patients foot and overall health at risk. Therefore, the benign hyperkeratotic lesions, ( 6 ) in total, locations as stated and described in the exam ( TA, T5, SUB MTH (s), 1, Plantar Heel(s), B/L), were pared, and/or cut utilizing a sterile 15 blade, tissue nippers, and/or power dremel instrumentation by the physician of [facility] - 15156 Progress Notes * Apolinar TOLEDOaDOB:[birth year] (69 yo F)Acc No.[id number]:06/30/2024 Progress Note Patient:?Gretta TOLEDO Provider:?Connie Martines DPM :1955???Age:69 Y???Sex:Female D ate:06/30/2024 Address:[address] [place], [place] [id number] Pcp:Lakisha Palmer Subjective: * Chief Complaints: * ???At Risk FootcarePainful N ail(s) aggravated by shoes and causing difficulty standing/walking.Foot painToe Irritation * HPI: ???At Risk footcare:?Pt States Last PCP Visit:?Date?03/28/2024 ???Foot Pain:?Nature:?aching, stiffness, swelling, throbbing.?Location:?Top, Midfoot, LEFT.?Duration:?several years.?Course:?unchanged.?Aggravated:?shoes.?Treatments:?rest/alter normal daily activity.?Toe pain:?Location:?B/L feet.?Duration:?several years.?Course:?worse.?Aggravated by:?shoes, any pressure.?Treatments:?Pt states she did not get appt yet for shoes.? * ROS:?General/Constitutional:?Nausea?denies.?Vomiting?denies.?Hunger Thirst?denies.?Loss appetite?denies.?Chills?denies.?Fatigue?denies.?Fever?denies.?Night Sweats?denies.?Unexplained weight loss?denies.?Unexplained weight gain?denies.?HEENTM:?Dentures?denies.?Dizziness?denies.?Glasses/contacts?admits.?Retinopathy?den ies.?Blurred/double vision?denies.?TMJ?denies.?Discharge/drainage?denies.?Implants?denies.?Sore throat?denies.?Dental implants?denies.?Hard of hearing ?denies.?Difficulty chewing/swallowing/speaking?denies.?Nose bleeds?denies.?Sore mouth?denies.?Respiratory:?On O xygen?denies.?Pneumonia/pleurisy?denies.?Bronchitis?denies.?Emphysema?denies.?Co ughing?denies.?Cough blood?denies.?Shortness of breath?denies.?Wheezing?denies.?Cardiovascular:?Pacemaker?denies.?MVP?denies.?WPW?denies.?CHF?denies.?Heart attack?denies.?Septal defect?denies.?Rapid beat?admits.?Chest pain ?denies.?Atrial Fib.?denies.?Murmur/Palpitations?denies.?Gastrointestinal:?Hemorrhoids?denies.?Stomach/Abdominal pain?admits.?Dark blood stool?denies.?Irritable bowel ?admits.?Constipation?denies.?Diarrhea?denies.?Hematology:?Swelling?denies.?Clots?denies.?Varicose Veins?admits.?Bruising?denies.?Bleeding problem?denies.?Genitourinary:?Blood urine?denies.?Frequent/Painfu/urination/bladder control?denies.?Kidney stones?denies.?Infection (UTI)?denies.?Nephropathy?denies.?sex trans dis (STD)?denies.?Prostate?denies.?Musculoskeletal:?Hammertoes?denies.?Bunions?denies.?Back Pain?denies.?Muscle Cramps/ Resting?admits.?Muscle cramps / walking?denies.?Generalized aches and pains?denies.?Weakness?denies.?Integ.:?Bolden?denies.?Scars?denies.?Corns/calluses?admits.?Ingrown nails?denies.?Painful nails?admits.?Open Sores?denies.?Rashes?admits.?Neurologic:?Difficulty sleeping?denies.?Brain disorder?denies.?Numbness?denies.?Balance t rouble?denies.?Confusion?denies.?Fainting/blackouts?denies.?Tingling?denies.?German mors?denies.? * Medical History:? * Surgical History:? s ection 2x 08/23/1984, 11/30/1979 * Hospitalization/Major Diagno stic Procedure:?Denies Past Hospitalization * Family History:?Mother: akanksha garner, diagnosed with Family history of arthritis, Unspecified essential hypertension.?Father: , lung cancer, diagnosed with Diabetic - NIDDM.?Paternal Grand Mother: diagnosed with Diabetic - NIDDM.? * Social History:?Tobacco Use:?Tobacco Use/Smoking?Are you a:?nonsmoker ?Additional Findings: Tobacco Non-User?Current non-smoker ?Tobacco use other than smoking?Are you an other tobacco user??No ???Miscellaneous:?Caffeine: yes, frequency:. ?Children: yes, 3. ?Exercise: no. ?Marital status: . 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 * Medications:?TakingLovastati n 40 MG Tablet 1 tablet with the evening meal Orally Once a day metFORMIN HCl 1000 MG Tablet 1 tablet with a meal Orally Once a day Carvedilol 3.125 MG Tablet 1 tablet with food Orally Twice a day Losartan Potassium 100 MG Tablet 1 tablet Orally Once a day Glimepiride 4 MG Tablet 1 tablet with breakfast or the first main meal of the day Orally Once a day Lantus 100 UNIT/ML Solution as directed Subcutaneous Extra Depth Orthopedic Shoes (1 Pair) with Customized Heat Molded Multidensity Innersoles (3 Pair) as directed Dx: NIDDM (E11.9), Hammertoe Foot Deformity (M20.41,M20.42), Preulcerative Skin Lesion(s) (L85.1) Taking Lovastatin 40 MG Tablet 1 tablet with the evening meal Orally Once a day Taking metFORMIN HCl 1000 MG Tablet 1 tablet with a meal Orally Once a day Taking Carvedilol 3.125 MG Tablet 1 tablet with food Orally Twice a day Taking Losartan Potassium 100 MG Tablet 1 tablet Orally Once a day Taking Glimepiride 4 MG Tablet 1 tablet with breakfast or the first main meal of the day Orally Once a day Taking Lantus 100 UNIT/ML Solution as directed Subcutaneous Taking Extra Depth Orthopedic Shoes (1 Pair) with Customized Heat Molded Multidensity Innersoles (3 Pair) as directed Dx: NIDDM (E11.9), Hammertoe Foot Deformity (M20.41,M20.42), Preulcerative Skin Lesion(s) (L85.1) Not-Taking/PRNAtorvastatin Calcium 40 MG Tablet 1 tablet Orally Once a day Medication List reviewed and reconciled with the patientNot-Taking/PRN Atorvastatin Calcium 40 MG Tablet 1 tablet Orally Once a day Medication List reviewed and reconciled with the patient * Allergies:?N.K.D.A.yes[Aller gizuhair Verified] Objective: * Vitals:?Ht: 5ft6in, Wt:234, BMI:37.76, Shoe size: 10.5, BP:136/76mm Hg, BS: 99, Ht-cm: 167.64 cm, Wt-k.14 kg. * ???Past Orders: ???Lab:HEMOGLOBIN A1C (GLYCO HEMOGLOBIN) (Order Date - 05/24/2024) (Collection Date & Time - 05/24/2024 09:17 AM) ? Value Reference Range ?HEMOGLOBIN A1C % (HH) 7.8 * Examination: ???Ophthalmology Referral: ?DIABETES EYE EXAM?Procedure Performed:?Yes ?Date of Exam Performed?05/24/2024 ?Findings of Diabetic Eye Exam:?no retinopathy?Nails: ?NAILS are:?Elongated, overgrown, dystrophic, lytic, greater than 3mm thick, discolored and friable with crumbly malodorous subungual debris, with pain on palpation, TA, T1, T2, T3, T4, T5, T6, T7, T8, T9.?Dermatologic: ?SKIN FINDINGS:?Skin exam reveals Keratotic lesion(s) located at, Medial plantar, TA, T5, SUB MTH (s), 1, Plantar Heel(s), B/L.?Neurological: ?SENSORY:?Neurological exam reveals intact sensorium, pain sensation normal, vibration sensation intact, pinprick sensation is normal in the lower extremities, 5.07 monofilament test performed at plantar aspects of 5 varied sites per foot shows sensation, normal, B/L, Pt denies, anesthesia, burning, paresthesia, tingling, B/L.?Vascular: ?DP PULSES (B):?3/4, B/L.?PT PULSES (B):?3/4, B/L.?CAPILLARY FILL TIME:?immediate, all digits, B/L.?TROPHIC CONDITION-TEXTURE/ELASTICITY/TURGOR/HAIR GROWTH (B):?decreased, B/L.?TEMPERTURE GRADIENT (C):?normal, warm to cool, proximal to distal, B/L.?PIGMENTATION:?brawny, B/L.?Orthopedic: ?MUSCLE STRENGTH:?5/5 all groups in a symmetrical fashion, B/L.?FOOT MORPHOLOGY:? Prominent, painful 1st Met-Cuneiform joint without inflammation, LEFT.?DIGITAL DEFORMITIES:?Digital contracture, PIPJ, 2-5 B/L, incompl-reducible to push-up test, no over, nor underlapping,?there is?evidence of shoe producing skin irritation.?FOOTWEAR:?worn, non-supportive, shoe gear properties exacerbate patient's foot/toe deformity.?General Examination: ?GENERAL APPEARANCE:?Reveals a pleasant, alert, well nourished, well- developed, well hydrated individual, who demonstrates proper attention to hygiene/body habitus, and is in no acute distress, Pt serves as own historian for office visit today.?ORIENTED:?person, place, and time.?FOOT EXAM:?Lower Extremity Neurological Exam performed:?Yes ?Visual exam of foot performed:?Yes ?Date?06/30/2024 ?Footwear Evaluation?Footwear Evaluation performed:?Yes??? Assessment: * Assessment: 1.?Other hammer toe(s) (acqu ired), right foot - M20.41 (Primary)???Specify :Chronic problem, Worse (4),Rx Management (4)???2.?Osteoarthritis of midtarsal joint of left foot - M19.072???3.?Tinea unguium - B35.1???4.?Type 2 diabetes mellitus without complication - E11.9???5.?Pain in left ankle and joints of left foot - M25.572???6.?Bursitis of left foot - M77.52???7.?Other hammer toe(s) (acquired), left foot - M20.42???Specify :Chronic problem, Worse (4),Rx Management (4)???8.?Pain in right toe(s) - M79.674???9.?Pain in left toe(s) - M79.675??? Plan: * Treatment: * Procedures:?Debride Nail 6-10:?Nail debridement?Due to the clinical pathology outlined in the exam findings, performance of this nail treatment is medically necessary as its management by an unskilled/untrained nonprofessional would put this patients foot and overall health at risk. Therefore, debridement to affected nail(s), as described in exam ( TA, T1, T2, T3, T4, T5, T6, T7, T8, T9, ), was performed exclusively by the physician of record to reduce/remove overall nail length, girth, thickness, subungual debris, and necrotic tissue, by manual and/or electrical means through the use of a nail nipper and/or dremel-type card grinder helper, to a more viable healthy nail plate or bed tissue 6- 10 nails in total. Silver nitrate was used for any petechial bleeding as necessary. Definitive antifungal treatment options, both pharmaceutical and surgical, have been reviewed and discussed with the patient. The patient solely prefers the use of intermittent/as needed professional debridement services for their nail condition and understands the need for additional periodic treatments to maintain effectiveness in symptomatic relief - 21739.?Keratoma Treatment:?Parring or Cutting of Benign Hyperkeratotic Lesion(s)?(-57) More than 4 Lesions - Due to the at risk nature of the patients medical condition as documented in the exam findings, performance of this keratoderma treatment is medically necessary as its management by an unskilled/untrained nonprofessional would put this patients foot and overall health at risk. Therefore, the benign hyperkeratotic lesions, ( 6 ) in total, locations as stated and described in the exam (?TA,?T5,?SUB MTH (s),?1,?Plantar Heel(s),?B/L), were pared, and/or cut utilizing a sterile 15 blade, tissue nippers, and/or power dremel instrumentation by the physician of record - 31063.? * Procedure Codes:?97947 TRIM SKIN LESIONS, OVER 4, Modifiers: XS 97477 DEBRIDE NAIL, 6 OR MORE, Modifiers: XS * Preventive Medicine:? ??Counseling:?Discussion:?-14: Office or other outpatient visit for the evaluation and management of an established patient, which required a medically appropriate history and/or examination and MODERATE level of DECISION MAKING for: 1 OR MORE CHRONIC PROBLEM(S) THATS WORSENING, 2 STABLE CHRONIC PROBLEMS, A NEWLY DIAGNOSED PROBLEM WITH UNCERTAIN PROGNOSIS, AN ACUTE COMPLICATED INJURY WITH MULTIPLE TREATMENT OPTIONS, OR AN ACUTE PROBLEM WITH ACCOMPANYING SYSTEMIC SYMPTOMS, THAT POSE(S) A MODERATE RISK OF MORBIDITY. THIS CONDITION MAY ALSO INCLUDE RX DRUG MANAGEMENT, OR A DECISON FOR MINOR SURGERY. The visit on the day of the encounter encompassed interpreting the data and educating the patient as to the nature of their condition, treatment options available according to their individual PMH, meds, allergies, and overall health/living conditions, as well as any potential risks or complications that may occur from a failure to adhere to, and participate in, the recommended course of therapy. The discussion included a complete verbal, and/or written explanation of the examination results, any x-rays taken, the proposed diagnosis, and outline of the treatment plan. A schedule for future care needs was also explained. The patient verbalized an understanding of the instructions at this time and agreed to be an active participant in their treatment. If the patient should think of any questions or concerns after the visit, I have encouraged the patient to call the office.?Arthritis:?The patient was counseled on the various etiologies for their Arthritis including genetic, history of injury or trauma, abnormal foot biomechanics leading to excessive joint wear, and use/overuse. We discussed the various treatment options from no treatment, to topical analgesics such as Biofreeze gel, Aspercream, Voltaren gel, Lidoderm patches, CBD oils, THC creams, and Custom-compounded topical cream preparations to natural oral products such as Glucosamine Sulfate/Chondroitin/MSM/Collegen to analgesic Tylenol, to anti-inflammatory medications such as Ibuprofen/Naproxen, and the use of oral steroids if needed. Cardiac, Kidney, and GI issues were discussed RE: potential complications of oral anti-inflammatories. We discussed several other treatment options consisting of accom shoes, supportive innersoles, AFO bracing/support, cortisone injection therapy, and surgical resection of the arthritic joint(s) or fusion reconstruction if necessary. We discussed the advantages and disadvantages of conservative (vs) surgical treamtents including pain relief, improved function/activities of daily life, return to exercise to failure, expense, systemic complications, infection, ghywoyu-wii-eypfldy, prolongued postop course. Patient questions re: the various treatment options available, their successes and potential failures, and long term care administrator effects were discussed and the answers were verbally confirmed understood, recommend pt alter the lacing of their shoes to avoid pressure on painful midfoot, Recommended Topical analgesics including Biofreeze/Aspercream/Voltaren gel.?Digital Surgery:?Digital surgery was discussed with the patient, We elected to try conservative treatment at the present time, due to the patients medical history and increased asssociated post-operative risks.?Digital Treatment:?HT- I explained to the patient the possible etiologies of Hammertoes, including genetics/foot type/shoegear/activity level/exercise routine and the risks/benefits of all the different treatment options for their pain including: No treatment at all, Rest, Ice, New/supportive/wider/deeper Shoegear, Digital Padding/Strapping/Taping/Bracing/Gel protective sleeves, Foot/Ankle AFO Bracing, Stretching exercises, Deep Tissue Massage, Arch support/shoe inserts with splay metatarsal padding, and Custom orthoses. I insisted that any digital devices be removed daily and not worn overnight for safety. The patient is to carefully examine the toes daily for any skin irritation while using any splinting or padding device. The advantages and disadvantages of each option were discussed and the patients questions re: shoegear, padding, custom vs prefabricated inserts, activity level, and consistency in home treatment regimens for optimal success were answered to their verbally confirmed satisfaction.?P.R.I.C.E.:?The patient was counseled on the use of P.R.I.C.E. and NSAIDS (if well tolerated) to aid in the recovery from their painful condition.?Shoe Gear Counseling:?SHOE Rx - The patient was counseled in great detail on their muscoloskeletal foot and toe deformities which coincided with the dermatological presentations visualized on exam. We discussed how their deformities put the integrity of their feet at risk for potential pedal complications which makes the accomidative diabetic shoes and cutomizable inserts medically necessary. We discussed the different shoe and insert treatment types and options, as well as the important advantages for adhering to regularly wearing these accomidative devices daily. The patient was made aware of the fact that a failure to abide by these recommedations may be deleterious to their foot health as they are able to prevent many pedal complications such as skin irritation, skin ulceration, infection, and even loss of toe/foot/leg/or life. Time was also spent with the patient dispensing and discussing proper diabetic footcare techniques including daily skin moisturization, daily foot inspection for any interruption in skin integrity including open lesions, or sign of infection such as redness/malodor/drainage/swelling. Also discussed and recommended were procedures regarding daily shoe inspection for the presence of internal foreign bodies as well as any visualized irregular shoe or insert wear. Patient questions re: shoes, inserts, and self foot inspections were answered to their satisfaction as the patient verbally confirmed a full understanding of the above information. A Rx for Extra Depth Orthopedic Shoes with 3 pair of custom heat-molded inserts was dispensed.? ??Screening/Special Tests:?Fall Risk?Assessment:?Performed ?Screening:?No falls in the past year ?FALLS: Screening for Future Fall Risk?Have you had two or more falls in the past year??No ?Have you had any falls with injury in the past year??No * Follow Up:?3 Months * Images: * Sign off status: Completed true * Provider:?Connie Martines DPM Date:?11/2024 Generated for Lusi hardy/Steve/Eitan on:?08/03/2024 09:05 AM EDT History and Physical Notes * HPI (History of Present Illness) Category Sub-Category Detail Notes Category Not es Toe pain Location: B/L feet Duration: several years Course: worse Aggravated by: shoes, any pressure Treatments: Pt states she did no t get appt yet for shoes At Risk footcare Pt States Last PCP Visit: Date: 4 Foot Pain Nature: aching, stiffness, swelling, throbbing Location: Top, Midfoot, LEFT Duration: several years Course: unchanged Aggravated: shoes Treatments: rest/alter normal da meghana activity Examination Category Sub-Category Detail Notes Category Not es Neurological SENSORY: Neurological exa m reveals intact sensorium, pain sensation normal, vibration sensation intact, pinprick sensation is normal in the lower extremities, 5.07 monofilament test performed at plantar aspects of 5 varied sites per foot shows sensation, normal, B/L, Pt denies, anesthesia, burning, paresthesia, tingling, B/L Dermatologic SKIN FINDINGS: Skin exam reveal s Keratotic lesion(s) located at, Medial plantar, TA, T5, SUB MTH (s), 1, Plantar Heel(s), B/L Orthopedic FOOT MORPHOLOGY: Prominent, pain ful 1st Met-Cuneiform joint without inflammation, LEFT FOOTWEAR: worn, non-supportive , shoe gear properties exacerbate patient's foot/toe deformity DIGITAL DEFORMITIES: Digital contracture , PIPJ, 2-5 B/L, incompl-reducible to push-up test, no over, nor underlapping, there is evidence of shoe producing skin irritation MUSCLE STRENGTH: 5/5 all groups in a symmetrical fashion, B/L General Examination GENERAL APPEARANCE: Reveals a pleasant, alert, well nourished, well-developed, well hydrated individual, who demonstrates proper attention to hygiene/body habitus, and is in no acute distress, Pt serves as own historian for office visit today FOOT EXAM: Lower Extremity Neurological Exa m performed:: Yes Visual exam of foot performed:: Yes Date: 06/30/2024 ORIENTED: person, place, and t jasis Footwear Evaluation Footwear Evaluation performe d:: Yes Ophthalmology Referral DIABETES EYE EXAM Procedure Perform ed:: Yes ?Date of Exam Performed: 05/24/2024 Findings of Diabetic Eye Exam:: no retin opathy Vascular DP PULSES (B): 3/4, B/L PT PULSES (B): 3/4, B/L CAPILLARY FILL TIME: immediate, all digi ts, B/L TEMPERTURE GRADIENT (C): normal, warm to cool, proximal to distal, B/L TROPHIC CONDITION-TEXTURE/ELASTICITY/TURGOR/HAIR GROWTH (B): decreased, B/L PIGMENTATION: brawny, B/L Nails NAILS are: Elongated, overg rown, dystrophic, lytic, greater than 3mm thick, discolored and friable with crumbly malodorous subungual debris, with pain on palpation, TA, T1, T2, T3, T4, T5, T6, T7, T8, T9
--- OUTSIDE RECORDS SUMMARY | 2024-08-03 09:05 | XMS_ITS ---
Author Organization [facility] Address [address] [place] [address] Care Team Providers Care Bell Maker Name Role Phone Lakisha Palmer Primary Care Provider Connie Perry Unavailable [phone] Allergies No Known Allergies REASON FOR VISIT At Risk Footcare, Painful Nail(s) aggravated by shoes and causing difficulty standing/walking., Foot pain, Toe Irritation Medications Medication SIG (Take, Route, Frequency, Duration) Notes Start Date End Date Status Lantus 100 UNIT/ML as directed Subcutaneous Active Glimepiride 4 MG 1 tablet with breakf ast or the first main meal of the day Orally Once a day Active Losartan Potassium 100 MG 1 tablet Orally Once a day Active Atorvastatin Calcium 40 MG 1 tablet Orally Once a day Active Carvedilol 3.125 MG 1 tablet with food O rally Twice a day Active Extra Depth Orthopedic Shoes (1 Pair) with Customized Heat Molded Multidensity Innersoles (3 Pair) as directed Dx: NIDDM (E11.9), Hammertoe Foot Deformity (M20.41,M20.42), Preulcerative Skin Lesion(s) (L85.1) 04/07/2024 Active metFORMIN HCl 1000 MG 1 tablet with a me al Orally Once a day Active Social History Tobacco Use: Social History Observation Description Date Details (start date - stop date) Never Smoker NA - NA Tobacco Use/Smoking Question Answer Notes Are you a: nonsmoker Additional Findings: Tobacco Non-User Current no n-smoker Alcohol Screen Question Answer Notes Did you have a drink containing alcohol in the p ast year? Yes Points 0 Interpretation Negative Tobacco use other than smoking: Question Answer Notes Are you an other tobacco user? No Problems Problem Type SNOMED Code ICD Code Onset Dates Problem Status W/U Status Risk Notes Problem Type 2 diabetes mellitus without complication (230565980) Type 2 diabetes mellitus without complication (E11.9) Active confirmed Problem Osteoarthritis of midtarsal joint of left foot (7199328193671675 ) Osteoarthritis of midtarsal joint of left foot (M19.072) Active confirmed Problem Acquired hammer toe of right foot (2700665768308980 ) Other hammer toe(s) (acquired), right foot (M20.41) Active confirmed Problem Acquired hammer toe of left foot (0076141025983261 ) Other hammer toe(s) (acquired), left foot (M20.42) Active confirmed Vital Signs Height 5 ft 6 in in 04/07/2024 Weight 235 lbs 04/07/2024 BMI 37.93 kg/m2 04/07/2024 Blood pressure systolic 136 mm Hg 04/07/20 24 Blood pressure diastolic 82 mm Hg 024 Encounters Encounter Location Date Provider Diagnosis [facility] [address] [place] [address] 04/07/2024 Connie Martines Tinea unguium B35.1 ; Osteoarthritis of midtarsal joint of left foot M19.072 ; Type 2 diabetes mellitus without complication E11.9 ; Pain in left ankle and joints of left foot M25.572 ; Bursitis of left foot M77.52 ; Other hammer toe(s) (acquired), right foot M20.41 and Other hammer toe(s) (acquired), left foot M20.42 Assessments Encounter Date Diagnosis (ICD Code) Assessment Notes Treatment Notes Treatment Clinical Notes Section Notes 04/07/2024 Tinea unguium (ICD-10 - B35.1) 04/07/2024 Osteoarthritis of midtarsal joint of left foot (ICD-10 - M19.072) 04/07/2024 Type 2 diabetes mellitus without complication (ICD-10 - E11.9) 04/07/2024 Pain in left ankle and joints of left foot (ICD-10 - M25.572) 04/07/2024 Bursitis of left foot (ICD-10 - M77.52) 04/07/2024 Other hammer toe(s) (acquired), right foot (ICD-10 - M20.41) Patient Educated with: DIABETIC FOOT CARE INSTRUCTIONS. pdf (DIABETIC FOOT CARE INSTRUCTIONS. pdf) 04/07/2024 Other hammer toe(s) (acquired), left foot (ICD-10 - M20.42) Plan Of Treatment Medication Medication Name Sig Start Date Stop Date Notes Extra Depth Orthopedic Shoes (1 Pair) with Customized Heat Molded Multidensity Innersoles (3 Pair) as directed Dx: NIDDM (E11.9), Hammertoe Foot Deformity (M20.41,M20.42), Preulcerative Skin Lesion(s) (L85.1) 04/07/2024 Treatment Notes Assessment Notes Other hammer toe(s) (acquired), right fo ot Patient Educated with: DIABETIC FOOT CARE INSTRUCTIONS.pdf (DIABETIC FOOT CARE INSTRUCTIONS.pdf) Pending Test Test Name Order Date X ray : Foot, left 3V 04/07/2024 Next Appt Details Follow Up: 2 Months, Reason: Provider Name:Connie tate, 09/26/2024 09:15:00 AM, [address] [place] [address], [phone], Progress Notes * Dustin TOLEDOB:[birth year] (69 yo F)Acc No.[id number]:04/07/2024 Progress Notes Patient:?Gretta TOLEDO Provider:?Connie Martines DPM :1955???Age:69 Y???Sex:Female D ate:04/07/2024 Address:[address] [place], [place] [id number] Pcp:Lakisha Palmer Subjective: * Chief Complaints: * ???At Risk FootcarePainful N ail(s) aggravated by shoes and causing difficulty standing/walking.Foot painToe Irritation * HPI: ???At Risk footcare:?Pt States Last PCP Visit:?Date?03/28/2024 ???Foot Pain:?Nature:?aching, stiffness, swelling, throbbing.?Location:?Top, Midfoot, LEFT.?Duration:?several years.?Course:?worse.?Aggravated:?shoes.?Treatments:?rest/alter normal daily activity.?Toe pain:?Location:?B/L feet.?Duration:?several years.?Course:?worse.?Aggravated by:?shoes, any pressure.?Treatments:?change in shoes.? * ROS:?General/Constitutional:?Nausea?denies.?Vomiting?denies.?Hunger Thirst?denies.?Loss appetite?denies.?Chills?denies.?Fatigue?denies.?Fever?denies.?Night Sweats?denies.?Unexplained weight [...] * Family History:?Mother: akanksha garner, diagnosed with Unspecified essential hypertension, Family history of arthritis.?Father: , lung cancer, diagnosed with Diabetic - NIDDM.?Paternal Grand Mother: diagnosed with Diabetic - NIDDM.? * Social History:?Tobacco Use:?Tobacco Use/Smoking?Are you a:?nonsmoker ?Additional Findings: Tobacco Non-User?Current non-smoker ?Tobacco use other than smoking?Are you an other tobacco user??No ???Drugs/Alcohol:?Drugs?Have you used drugs other than those for medical reasons in the past 12 months??No ?Alcohol Screen?Did you have a drink containing alcohol in the past year??Yes ?Points?0 ?Interpretation?Negative ???Miscellaneous:?Caffeine: yes, frequency:. ?Children: yes, 3. ?Marital status: . 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 * Medications:?TakingmetFORMIN HCl 1000 MG Tablet 1 tablet with a meal Orally Once a day Carvedilol 3.125 MG Tablet 1 tablet with food Orally Twice a day Atorvastatin Calcium 40 MG Tablet 1 tablet Orally Once a day Losartan Potassium 100 MG Tablet 1 tablet Orally Once a day Glimepiride 4 MG Tablet 1 tablet with breakfast or the first main meal of the day Orally Once a day Lantus 100 UNIT/ML Solution as directed Subcutaneous Medication List reviewed and reconciled with the patientTaking metFORMIN HCl 1000 MG Tablet 1 tablet with a meal Orally Once a day Taking Carvedilol 3.125 MG Tablet 1 tablet with food Orally Twice a day Taking Atorvastatin Calcium 40 MG Tablet 1 tablet Orally Once a day Taking Losartan Potassium 100 MG Tablet 1 tablet Orally Once a day Taking Glimepiride 4 MG Tablet 1 tablet with breakfast or the first main meal of the day Orally Once a day Taking Lantus 100 UNIT/ML Solution as directed Subcutaneous Medication List reviewed and reconciled with the patient * Allergies:?N.K.D.A.yes[Aller gies Verified] Objective: * Vitals:?Ht:5 ft 6 in, Wt:235 , BMI:37.93, Shoe size:10.5, BP:136/82mm Hg, BS: 208, Ht-cm: 167.64 cm, Wt-k.59 kg. * ???Past Orders: ???Lab:HEMOGLOBIN A1C (GLYCO HEMOGLOBIN) (Order Date - 03/24/2024) (Collection Date & Time - 03/24/2024 08:19 AM) ? Value Reference Range ?TOTAL HEMOGLOBIN (HGBA1C) 8.0 * Examination: ???Ophthalmology Referral: ?DIABETES EYE EXAM?Procedure Performed:?Yes ?Date of Exam Performed?05/24/2023 ?Findings of Diabetic Eye Exam:?no retinopathy?Nails: ?NAILS are:?Elongated, overgrown, dystrophic, lytic, greater than 3mm thick, discolored and friable with crumbly malodorous subungual debris, with pain on palpation, 1-5 B/L.?Dermatologic: ?SKIN FINDINGS:?Skin exam reveals normal texture, elasticity, and turgor. There are no masses. The interspaces are clear, B/L,.?Neurological: ?SENSORY:?Neurological exam reveals intact sensorium, pain sensation [...] non-supportive, shoe gear properties exacerbate patient's foot/toe deformity.?X-Rays - IMAGING REPORT: ?Clinical Indication(s):? Evaluate for Fracture, Evaluate Biomechanical Deformity.?Views:? 3 views of Foot, AP, LAT, LO, LEFT,Taken by a trained Podiatric Speech Therapy Teacher ( SF).?Findings:?moderate generalized decrease in bone density, eburnation dorsal 1st MT/Cun. jt, dorsal degenerative changes of the tarsal joints.?Foot structure:?reveals excess pronation with, anterior break in cyme line, increased talar declination, decreased calcaneal inclination.?Fracture:?Negative fractures identified.?General Examination: ?GENERAL APPEARANCE:?Reveals a pleasant, alert, well nourished, well- developed, well hydrated individual, who demonstrates proper attention to hygiene/body habitus, and is in no acute distress, Pt serves as own historian for office visit today.?ORIENTED:?person, place, and time.?FOOT EXAM:?Lower Extremity Neurological Exam performed:?Yes ?Visual exam of foot performed:?Yes ?Date?06/30/2024 ?Footwear Evaluation?Footwear Evaluation performed:?Yes??? Assessment: * Assessment: 1.?Tinea unguium - B35.1???2 .?Osteoarthritis of midtarsal joint of left foot - M19.072 (Primary)???3.?Type 2 diabetes mellitus without complication - E11.9???4.?Pain in left ankle and joints of left foot - M25.572???5. Bursitis of left foot - M77.52???6.?Other hammer toe(s) (acquired), right foot - M20.41???Specify :Chronic problem, Worse (4),Rx Management (4)???7.?Other hammer toe(s) (acquired), left foot - M20.42???Specify :Chronic problem, Worse (4),Rx Management (4)??? Plan: * Treatment: * Imaging:? * ?Imaging: X ray : Foot, left 3V * Procedure Codes:?38313 X-RAY EXAM OF LEFT FOOT 3V, Modifiers: 26 , LT * Preventive Medicine:? ??Counseling:?Discussion:?-04: Office or other outpatient visit for the evaluation and management of a new patient, which required a medically appropriate history [...] exercise to failure, expense, systemic complications, infection, [id number], prolongued postop course. Patient questions re: the various treatment options available, their successes and potential failures, and mcfp effects were discussed and the answers were verbally confirmed understood.?Digital Surgery:?Digital surgery was discussed with the patient, [...] success were answered to their verbally confirmed satisfaction.?Fungal Nail Counseling:?. The patient chooses, to CONT, to use a topical antifungal, Ciclopirox gel from [employer].?Orthotics:?I explained to the patient the benefits of OT use. I explained that orthoses are medically necessary to decrease the foot pain through proper mechanical control, support of their foot.?P.R.I.C.E.:?The patient was counseled on the use of P.R.I.C.E. and NSAIDS (if well tolerated) to aid in the recovery from their painful condition.?Podiatric Surgery Counseling:?Surgical procedures to treat the patients foot problem were discussed. We reviewed the risks of the procedure (described below) vs not having the procedure (persistent pain, deformity, risk for skin ulceration/infection, loss of toe). We discussed the potential procedure complications including, but not limited to: pain, swelling, bleeding, scarring, numbness, infection, delayed/non healing, floppy/unstable/shorthened toe, recurrence, failure of the procedure, overcorrection leading to plantarflexed/downward positioned toe, recurrence, need for further surgery, as well as the possibility for loss of the toe itself. We discussed the use of IV/Local anesthesia, and the usual post-op course for healing. No guarentees were given. The patient verbally indicated a full understanding of the above conversation, and any other of their questions were answered to their satisfaction.?Shoe Gear Counseling:?The patient and I reviewed the types of shoes they should be wearing. My recommendation included obtaining a well-fitted shoe with a good supportive, non-foldable nor twistable sole, plenty of toe/room for the forefoot, and proper arch support. Based on todays examination, I recommended the patient look for new shoes, by having their feet professionally measured. We discussed that generally the best time of the day for a shoe fitting is the afternoon. Different shoes types and brands to best match the patients occupation and vocation were discussed. Specific brand selection will be up to the patient, their individual foot condition/deformities, and fit. The patient and I reviewed the standard new shoe break in period by wearing them for a few hours a day while checking for redness or sores as wear time is increased. The patient verbally confirmed to understanding the information discussed, SHOE Rx - The patient was counseled in [...] 3 pair of custom heat-molded inserts was dispensed.?X-rays:?Discussed and reviewed the X-rays with the patient. We discussed how the findings relate to the patients symptoms/complaints. Answered any and all questions..? ??Screening/Special Tests:?Fall Risk?Assessment:?Performed ?Screening:?No falls in the past year ?FALLS: Screening for Future Fall Risk?Have you had two or more falls in the past year??No ?Have you had any falls with injury in the past year??No * Follow Up:?2 Months * Images: * Sign off status: Completed true * Provider:?Connie Martines DPM Date:? Generated for Luis hardy/Steve/eTrociosmvalentine on:?08/03/2024 09:05 AM EDT History and Physical Notes * HPI (History of Present Illness) Category Sub-Category Detail Notes Category Not es Toe pain Location: B/L feet Duration: several years Course: worse Aggravated by: shoes, any pressure Treatments: change in shoes At Risk footcare Pt States Last PCP Visit: Date: 4 Foot Pain Nature: aching, stiffness, swelling, throbbing Location: Top, Midfoot, LEFT Duration: several years Course: worse Aggravated: shoes Treatments: rest/alter normal da meghana [...] Dermatologic SKIN FINDINGS: Skin exam reveal s normal texture, elasticity, and turgor. There are no masses. The interspaces are clear, B/L, Orthopedic FOOT MORPHOLOGY: Prominent, pain ful 1st [...] Date: 06/30/2024 ORIENTED: person, place, and t jassi Footwear Evaluation Footwear Evaluation performe d:: Yes Ophthalmology Referral DIABETES EYE EXAM Procedure Perform ed:: Yes ?Date of Exam Performed: 05/24/2023 Findings of Diabetic Eye Exam:: no retin [...] malodorous subungual debris, with pain on palpation, 1-5 B/L X-Rays - IMAGING REPORT Findings: moderate generalized decrease in bone density, eburnation dorsal 1st MT/Cun. jt, dorsal degenerative changes of the tarsal joints Fracture: Negative fractures i dentified Foot structure: reveals excess prona tion with, anterior break in cyme line, increased talar declination, decreased calcaneal inclination Views: 3 views of Foot, AP, LAT, LO, LEFT,Taken by a trained Podiatric Speech Therapy Teacher ( SF) Clinical Indication(s): Evaluate for Fra cture, Evaluate Biomechanical Deformity
--- OUTSIDE RECORDS SUMMARY | 2024-08-03 09:05 | XMS_ITS | Patient Health Record ---
Author Organization [facility] Address [address] [place] [address] Care Team Providers Care Certified Medical Assistant Name Role Phone Lakisha Palmer Primary Care Provider Connie Perry Unavailable [phone] Allergies No Known Allergies Results Component Value Reference Range Notes HEMOGLOBIN A1C (GLYCOHEMOGLO BIN) Reviewed date:04/07/2024 08:20:16 AM Interpretation: Performing Lab: Notes/Report: TOTAL HEMOGLOBIN (HGBA1C) 8.0 HEMOGLOBIN A1C (GLYCOHEMOGLO BIN) Reviewed date:06/30/2024 09:17:55 AM Interpretation: Performing Lab: Notes/Report: HEMOGLOBIN A1C % (HH) 7.8 Reason For Referral Diagnosis 1 Pain in unspecified foot (M79.673) Referring Provider First Name Lakisha Referring Provider Last Name Cherise [facility] [place] Referred Provider Connie Martines Referred Address [address] [place], [place],[address], Referred Provider Specialty Podiatry Referral Priority Routine Medications Medication SIG (Take, Route, Frequency, Duration) [...] evening meal Orally Once a day Active Lantus 100 UNIT/ML as [...] with food Orally Twice a day Active Social History Tobacco Use: [...] Problem Status W/U Status Risk Notes Problem Acquired hammer toe of right foot (4706610843156524 ) Other hammer toe(s) (acquired), right foot (M20.41) Active confirmed Problem Acquired hammer toe of left foot (8065112257297026 ) Other hammer toe(s) (acquired), left foot (M20.42) Active confirmed Problem Type 2 diabetes mellitus without complication (827167151) Type 2 diabetes mellitus without complication (E11.9) Active confirmed Problem Osteoarthritis of midtarsal joint of left foot (3683631153048256 ) Osteoarthritis of midtarsal joint of left foot (M19.072) Active confirmed Vital Signs Blood pressure diastolic 76 mm Hg 06/30/2024 Height 5ft6in in 06/30/2024 Blood pressure systolic 136 mm Hg 06/30/2024 Weight 234 lbs 06/30/2024 BMI 37.76 kg/m2 06/30/2024 Encounters Encounter Location Date Provider Diagnosis [facility] [place] [address] [place] [address] 04/07/2024 Connie Martines Tinea unguium B35.1 ; Osteoarthritis of midtarsal joint of left foot M19.072 ; Type 2 diabetes mellitus without complication E11.9 ; Pain in left ankle and joints of left foot M25.572 ; Bursitis of left foot M77.52 ; Other hammer toe(s) (acquired), right foot M20.41 and Other hammer toe(s) (acquired), left foot M20.[address] [facility] [address] [address] 06/30/2024 Connie Martines Osteoarthritis of midtarsal joint of left foot [...] pdf (DIABETIC FOOT CARE INSTRUCTIONS. pdf) 06/30/2024 Osteoarthritis of midtarsal joint of left foot (ICD-10 - M19.072) 06/30/2024 Tinea unguium (ICD-10 - B35.1) 04/07/2024 Type 2 diabetes mellitus without complication (ICD-10 - E11.9) 04/07/2024 Pain in left ankle and joints of left foot (ICD-10 - M25.572) 06/30/2024 Type 2 diabetes mellitus without complication (ICD-10 - E11.9) 06/30/2024 Pain in left ankle and joints of left foot (ICD-10 - M25.572) 04/07/2024 Bursitis of left foot (ICD-10 - M77.52) 04/07/2024 Other hammer toe(s) (acquired), right foot (ICD-10 - M20.41) Patient Educated with: DIABETIC FOOT CARE INSTRUCTIONS. pdf (DIABETIC FOOT CARE INSTRUCTIONS. pdf) 06/30/2024 Bursitis of left foot (ICD-10 - M77.52) 04/07/2024 Other hammer toe(s) (acquired), left foot (ICD-10 - M20.42) 06/30/2024 Other hammer toe(s) (acquired), left foot (ICD-10 - M20.42) 06/30/2024 Pain in right toe(s) (ICD-10 - M79.674) 06/30/2024 Pain in left toe(s) (ICD-10 - M79.675) Plan Of Treatment Pending Test Test Name Order Date X ray : Foot, left 3V 04/07/2024 Next Appt Details Provider Name:Connie tate, 09/26/2024 09:15:00 AM, [address] [place] [address], [phone], Insurance Providers Payer Name Payer Address Payer Phone Subscriber Number Group Number Insured Name Patient Relationship to Insured Coverage Start Date Coverage End Date [place] [address] [place]EN[place]A Fink [phone] [id number] Gretta Mark i Self - patient is the insured Medical (General) History Medical History History ICD Code type II diabetes High Blood Pressure Psoriasis/eczema Measles Mumps Chicken pox Surgical History Surgery Date(Month/Year) section 2x 08/23/1984, 11/29/18 82
== END 2024-08-03 09:15 | disposition home or self-care (01) ==
LOC: HO.HCS 08:31
PROVIDERS: PCP Family Medicine; Visit Provider Nurse Practitioner Family
DX: I44.7 Left bundle-branch block, unspecified (principal); I10 Essential (primary) hypertension; R55 Syncope and collapse
CPT/HCPCS: 93010; 99214

== ENCOUNTER → 2024-08-03 08:30 | Outpatient (BNVA) | payer OTHER, SELFPAY | PROVIDERS: PCP Family Medicine; Visit Provider Nurse Practitioner Family | DX: I10 Essential (primary) hypertension (principal); I44.7 Left bundle-branch block, unspecified; R55 Syncope and collapse | CPT/HCPCS: 93005 ==